=== PATIENT | male | born 1945 | race Caucasian/White ===

== ENCOUNTER 2017-05-12 06:31 | Day surgery (SDC) | payer OTHER ==
[2017-05-12] MEDS ORDERED: LIDOCAINE 1% 2 ML INJ ID PRN (06:44)
[2017-05-12] MEDS ORDERED: ceFAZolin 2 GM/DEXTROSE 100 ML IV ONE (06:44)
[2017-05-12] MEDS ORDERED: LR 1,000 ML IV ONE (06:44)
--- NOTE | 2017-05-12 07:15 | PDHPUP ---
History & Physical Update H&P update statement: This history and physical update is based on an assessment of the patient which was completed after admission or registration (within 24 hours), but prior to the surgery/procedure. H&P update: H&P reviewed & patient examined, no change in patient's condition since H&P completed
[2017-05-12 07:19] VITALS: PULSE 90
--- NOTE | 2017-05-12 08:20 | PDANEPAE ---
ANE History of Present Illness presents for open ventral hernia repair ANE Past Medical History - Cardiovascular History Hx Hypertension: No Hx Arrhythmias: No Hx Chest Pain: No Hx Coronary Artery / Peripheral Vascular Disease: No Hx CHF / Valvular Disease: No Hx Palpitations: No - Pulmonary History Hx COPD: No Hx Asthma/Reactive Airway Disease: No Hx Recent Upper Respiratory Infection: No Hx Oxygen in Use at Home: No Hx Sleep Apnea: No Sleep Apnea Screening Result - Last Documented: Negative - Neurologic History Hx Cerebrovascular Accident: No Hx Seizures: No Hx Dementia: No - Endocrine History Hx Diabetes: No Obesity: no - Renal History Hx Renal Disorders: No - Liver History Hx Hepatic Disorders: Yes Hepatic History Comment: CYSTS REMOVED FROM LIVER - Neurological & Psychiatric Hx Hx Neurological and Psychiatric Disorders: No - Cancer History Hx Cancer: No Cancer History Comment: SKIN CA NECK & BACK - GI History Hx Gastrointestinal Disorders: Yes Gastrointestinal History Comment: DIGESTIVE PROBLEMS - Other Health History Other Health History: DISCOID LUPUS OCCAS OUTBREAKS - Chronic Pain History Chronic Pain: Yes (LBP AND NECK) - Surgical History Prior Surgeries: NECK DISC SURGERY FUSION 2009. LOW BACK SURGERY FUSION 2009. HERNIORRHAPHY ING [facility] UMBILICAL. LIVER CYSTS REMOVED ANE Review of Systems Review of systems is: negative Review of Systems: - Exercise capacity METS (RN): 4 METS ANE Patient History - Allergies Allergies/Adverse Reactions: No Known Allergies Allergy (Unverified 03/15/10 11:39) - Home Medications Home medications: home medication list seen and reviewed Home Medications: HYDROcodone/APAP 10/325 05/12/17 [Last Taken 05/12/17] traMADol 05/12/17 [Last Taken 05/12/17 06:15] - NPO status NPO Since - Liquids (Date): 05/12/17 NPO Since - Liquids (Time): 06:15 NPO Since - Solids (Date): 05/11/17 NPO Since - Solids (Time): 19:00 - Anes Hx Anes Hx: no prior problems - Smoking Hx Smoking Status: Former smoker - Family Anes Hx Family Anes Hx: none Family Hx Anesthesia Complications: NEG ANE Labs/Vital Signs - Vital Signs Blood Pressure: 130/83 Heart Rate: 90 Respiratory Rate: 16 O2 Sat (%): 97 Height: 172.72 cm Weight: 77.111 kg ANE Physical Exam - Airway Neck exam: FROM Mallampati Score: Class 2 Mouth exam: normal dental/mouth exam - Pulmonary Pulmonary: no respiratory distress - Cardiovascular Cardiovascular: regular rate and rhythym - ASA Status ASA Status: II ANE Anesthesia Plan Anesthesia Plan: GA w LMA
[2017-05-12] MEDS ORDERED: BUPIVACAINE 0.5% 30 ML SDV ONE (08:21)
[2017-05-12] MEDS ORDERED: MIDAZOLAM 2 MG/2 ML VIAL IVP ONE (08:23)
[2017-05-12] MEDS ORDERED: DEXAMETHASONE 4 MG/ML VIAL ONE (08:26)
[2017-05-12] MEDS ORDERED: ONDANSETRON 4 MG/2 ML VIAL ONE (08:26)
[2017-05-12] MEDS ORDERED: PROPOFOL 200 MG/20 ML VIAL ONE (08:26)
[2017-05-12] MEDS ORDERED: fentaNYL 100 MCG/2 ML INJ ONE ×2 (08:26→09:17)
[2017-05-12] MEDS ORDERED: LIDOCAINE 2% 5 ML SDV ONE (08:26)
[2017-05-12] MEDS ORDERED: THROMBIN (BOVINE) 5,000 UNIT VIAL TP ONE (09:38)
[2017-05-12] MEDS ORDERED: ALBUTEROL 3 ML DEYVIAL IH PRN (09:46)
[2017-05-12] MEDS ORDERED: PROMETHAZINE HCL 25 MG/ML INJ IVP PRN (09:46)
[2017-05-12] MEDS ORDERED: HYDROmorphONE/DILAUDID 1 MG/ML INJ IVP PRN (09:46)
[2017-05-12] MEDS ORDERED: ACETAMINOPHEN 500 MG TAB PO PRN (09:46)
[2017-05-12] MEDS ORDERED: NALOXONE HCL 0.4 MG/ML INJ IVP PRN (09:46)
[2017-05-12] MEDS ORDERED: HYDROCODONE/APAP 5/325 TAB PO PRN (09:46)
[2017-05-12] MEDS ORDERED: METOCLOPRAMIDE 10 MG/2 ML VIAL IVP PRN (09:46)
[2017-05-12] MEDS ORDERED: fentaNYL 100 MCG/2 ML INJ IVP PRN (09:46)
[2017-05-12] MEDS ORDERED: ONDANSETRON 4 MG/2 ML VIAL IVP PRN (09:46)
--- NOTE | 2017-05-12 10:03 | POSTANESTH ---
Post Anesthetic Evaluation Cardiovascular Status: Normal, Stable Respiratory Status: Normal, Stable Level of Consciousness/Mental Status: Can Participate in Eval Pain Control: Adequate, Prn Tx Ordered Nausea/Vomiting Control: Adequate, Prn Tx Ordered Complications Possibly Related to Anesthesia: None Noted
--- NOTE | 2017-05-12 10:04 | POSTOPPROG ---
Post Op Note Date of Operation: 05/12/17 Surgeon: Lucas Hernandez Retail Area Manager: Eli Farris Anesthesiologist: Ayanna Anesthesia: GET(General Endotracheal) Pre-op Diagnosis: Ventral hernia Post-op Diagnosis: same Indication: enlarging ventral hernia Procedure: Open ventral hernia repair with mesh Findings: Ventral hernia Inf/Abcess present in the surg proc area at time of surgery?: No Depth: Deep Incisional (Fascial) EBL: Minimal Specimen(s): hernia sac
[2017-05-12] MEDS ORDERED: HYDROCODONE/APAP 5/325 TAB ONE (10:27)
[2017-05-12 11:09] VITALS: TEMP 97.9
[2017-05-12] MEDS ORDERED: HYDROmorphONE/DILAUDID 1 MG/ML INJ ONE (11:13)
[2017-05-12 12:38] VITALS: BP 131/79; RESP 24; O2SAT 97
--- NOTE | 2017-05-18 11:31 | GOP ---
[f rep st] OPERATIVE REPORT DATE OF OPERATION: 05/12/2017 SURGEON: Lucas Hernandez MD PIE CHEF: Eli Farris PA-C. ANESTHESIOLOGIST: Dr. Urena. PREOPERATIVE DIAGNOSIS: Ventral hernia. POSTOPERATIVE DIAGNOSIS: Ventral hernia. PROCEDURE PERFORMED: Open ventral hernia repair with mesh. FINDINGS: Patient was found to have a 3 cm hernia defect with additional attenuated fascia causing a diastasis effect. DESCRIPTION OF PROCEDURE: Patient taken to the operating room where he received satisfactory general endotracheal anesthesia by Dr. Urena. He was placed in supine position, prepped and draped in [facility] sterile fashion. A vertical incision was made through the previous old scar. Dissection carried down through subcutaneous tissue. Hernia sac was dissected free from surrounding subcutaneous tissu e, and the sac was dissected down to the fascial edges. The sac was then opened. Its contents were reduced. Excess sac was amputated. Hemostasis was assured. Fascial edges were freshened up. A sub fascial pocket was created. The peritoneum was closed with a running 3-0 Vicryl suture to close off the subfascial pocket. A Covidien polyester mesh patch was placed in a subfascial position and ancho red around the periphery of the wound with interrupted 0 Ethibond mattress sutures at least 2 cm back from the fascial edges. The fascial edges were then closed in a [id number] 2-layer closure wit h 0 Ethibond mattress sutures, and some of the attenuated fascia above the hernia defect was imbricat ed as well with interrupted 0 Ethibond hnygal-dc-[id number] sutures. Wound was infiltrated with 0.5% Chaitanya rogelio. Hemostasis was thoroughly obtained. Subcu was closed with a running 2-0 Vicryl suture and the skin with a 4-0 Monocryl subcuticular stitch. All layers again were infiltrated with 0.5% Marcaine. There were no complications. Blood loss was less than 15 cc. He was taken to recovery room in goo d condition. /[id number]/MODL
== END 2017-05-12 12:35 | disposition home or self-care (01) ==
LOC: FSGY 06:31
PROVIDERS: ATTEND Surgery
PROC: 0WUF0JZ Supplement Abdominal Wall with Synthetic Substitute, Open Approach (ICD-10-PCS; principal; 2017-05-12 08:30)
DX: K43.9 Ventral hernia without obstruction or gangrene (principal)
CPT/HCPCS: C1781; J0690; J1100; J1170; J2250; J2405; J2704; J3010

== ENCOUNTER 2018-02-06 11:47 | Observation (INO) | payer OTHER ==
[2018-02-06] MEDS ORDERED: ceFAZolin 2 GM/DEXTROSE 100 ML IV ONE (12:17)
[2018-02-06] MEDS ORDERED: LIDOCAINE 1% 2 ML INJ ID PRN (12:31)
[2018-02-06] MEDS ORDERED: LIDOCAINE 1% 2 ML INJ ONE (12:31)
[2018-02-06] MEDS ORDERED: LR 1,000 ML IV ONE (12:31)
[2018-02-06] MEDS ORDERED: BUPIVACAINE 0.25% 30 ML SDV ONE (13:00)
--- NOTE | 2018-02-06 14:19 | PDANEPAE ---
ANE History of Present Illness Laparoscopic repair of recurrent ventral hernia ANE Past Medical History - Cardiovascular History Hx Hypertension: No Hx Arrhythmias: No Hx Chest Pain: No Hx Coronary Artery / Peripheral Vascular Disease: No Hx CHF / Valvular Disease: No Hx Palpitations: No Cardiovascular History Comment: PVC's - Pulmonary History Hx COPD: No Hx Asthma/Reactive Airway Disease: No Hx Recent Upper Respiratory Infection: No Hx Oxygen in Use at Home: No Hx Sleep Apnea: No Sleep Apnea Screening Result - Last Documented: Positive - Neurologic History Hx Cerebrovascular Accident: No Hx Seizures: No Hx Dementia: No - Endocrine History Hx Diabetes: No Hypothyroid: No Hyperthyroid: No Obesity: mild - Renal History Hx Renal Disorders: No - Liver History Hx Hepatic Disorders: Yes Hepatic History Comment: CYSTS REMOVED FROM LIVER - Neurological & Psychiatric Hx Hx Neurological and Psychiatric Disorders: Yes Neurological / Psychiatric History Comment: discoid lupus, insomnia, occasional anxiety - Cancer History Hx Cancer: No Cancer History Comment: SKIN CA NECK & BACK - Congenital Disorder History Hx Congenital Disorders: No - GI History GERD: no Hx Gastrointestinal Disorders: Yes Gastrointestinal History Comment: chronic constipation - Other Health History Other Health History: DISCOID LUPUS OCCAS OUTBREAKS - Chronic Pain History Chronic Pain: Yes (LBP AND NECK, on chronic opioids) - Surgical History Prior Surgeries: NECK DISC SURGERY FUSION 2009. LOW BACK SURGERY FUSION 2009. HERNIORRHAPHY ING [facility]NGEL & UMBILICAL. LIVER CYSTS REMOVED. hernia repair 10/22 ANE Review of Systems Review of Systems: - Exercise capacity METS (RN): 4 METS ANE Patient History - Allergies Allergies/Adverse Reactions: No Known Allergies Allergy (Unverified 02/05/18 13:22) - Home Medications Home Medications: HYDROcodone/APAP 10/325 05/12/17 [Last Taken 02/05/18 22:30] traMADol 05/12/17 [Last Taken 02/04/18] Acetaminophen [Tylenol ES 500 mg (*)] 02/05/18 [Last Taken 02/05/18 23:59] Gabapentin 02/05/18 [Last Taken 02/06/18 11:45] Valium 2 MG (*) 02/05/18 [Last Taken 02/05/18 23:00] Percocet 5/325 (*) 02/06/18 [Last Taken 02/06/18 07:30] - NPO status NPO Since - Liquids (Date): 02/06/18 NPO Since - Liquids (Time): 09:00 NPO Since - Solids (Date): 02/05/18 NPO Since - Solids (Time): 23:30 - Smoking Hx Smoking Status: Former smoker - Family Anes Hx Family Hx Anesthesia Complications: NEG ANE Labs/Vital Signs - Vital Signs Blood Pressure: 157/85 Heart Rate: 90 Respiratory Rate: 18 O2 Sat (%): 95 Height: 172.72 cm Weight: 79.379 kg ANE Physical Exam - Airway Neck exam: decreased ROM Mallampati Score: Class 2 Mouth exam: normal dental/mouth exam - Pulmonary Pulmonary: clear to auscultation - Cardiovascular Cardiovascular: regular rate and rhythym - ASA Status ASA Status: III ANE Anesthesia Plan Anesthesia Plan: general endotracheal anesthesia
[2018-02-06] MEDS ORDERED: MIDAZOLAM 2 MG/2 ML VIAL IVP ONE (14:23)
[2018-02-06] MEDS ORDERED: PROPOFOL 200 MG/20 ML VIAL ONE (14:30)
[2018-02-06] MEDS ORDERED: DEXAMETHASONE 4 MG/ML VIAL ONE (14:30)
[2018-02-06] MEDS ORDERED: fentaNYL 250 MCG/5 ML INJ ONE (14:30)
[2018-02-06] MEDS ORDERED: ROCURONIUM 50 MG/5 ML VIAL ONE (14:30)
[2018-02-06] MEDS ORDERED: ESMOLOL HCL 100 MG/10 ML VIAL IV ONE (15:33)
[2018-02-06] MEDS ORDERED: ONDANSETRON 4 MG/2 ML VIAL ONE (15:39)
[2018-02-06] MEDS ORDERED: NEOSTIGMINE METHYLSULFATE 3 MG/3 ML SYR ONE (15:41)
[2018-02-06] MEDS ORDERED: GLYCOPYRROLATE 0.2 MG/1 ML VIAL ONE (15:41)
[2018-02-06] MEDS ORDERED: KETOROLAC 30 MG/1 ML SDV ONE (15:50)
[2018-02-06] MEDS ORDERED: ONDANSETRON 4 MG/2 ML VIAL IVP PRN (15:53)
[2018-02-06] MEDS ORDERED: NALOXONE HCL 0.4 MG/ML INJ IVP PRN (15:53)
[2018-02-06] MEDS ORDERED: oxyCODONE IR 5 MG TAB PO PRN (15:53)
[2018-02-06] MEDS ORDERED: LABETALOL HCL 5 MG/ML 20 ML MDV IVP PRN (15:53)
--- NOTE | 2018-02-06 15:58 | POSTOPPROG ---
Post Op Note Date of Operation: 02/06/18 Surgeon: Lucas Hernandez Tellers Supervisor: Keyonna Mcgowan Anesthesiologist: Av Sifuentes Anesthesia: GET(General Endotracheal) Pre-op Diagnosis: recurrent ventral hernia Post-op Diagnosis: same Procedure: laparoscopic recurrent ventral hernia repair c mesh Findings: ~2 cm hernia adjacent to mesh Inf/Abcess present in the surg proc area at time of surgery?: No EBL: Minimal Complications: none Specimen(s): none
[2018-02-06] MEDS ORDERED: fentaNYL 100 MCG/2 ML INJ ONE ×2 (16:15→18:26)
[2018-02-06] MEDS: fentaNYL 100 MCG/2 ML INJ IVP PRN ×3 (16:16→18:29)
[2018-02-06] MEDS ORDERED: oxyCODONE IR 5 MG TAB ONE (17:07)
--- NOTE | 2018-02-06 17:09 | POSTANESTH ---
Post Anesthetic Evaluation Cardiovascular Status: Similar to Pre-Op Cond Respiratory Status: Normal, Stable Level of Consciousness/Mental Status: Can Participate in Eval Pain Control: Adequate, Prn Tx Ordered Nausea/Vomiting Control: Adequate, Prn Tx Ordered Complications Possibly Related to Anesthesia: None Noted
[2018-02-06] MEDS ORDERED: HYDROmorphONE/DILAUDID 1 MG/ML INJ ONE (19:13)
[2018-02-06] MEDS: HYDROmorphONE/DILAUDID 1 MG/ML INJ IVP PRN ×2 (20:21→22:37)
[2018-02-06] MEDS: HYDROCODONE/APAP 10/325 TAB PO PRN (20:22)
[2018-02-07] MEDS: HYDROmorphONE/DILAUDID 1 MG/ML INJ IVP PRN ×3 (00:42→10:14)
[2018-02-07] MEDS: HYDROCODONE/APAP 10/325 TAB PO PRN ×2 (03:09→13:11)
[2018-02-07] MEDS: KETOROLAC 15 MG/1 ML SDV IVP SCH ×2 (10:21→16:50)
--- NOTE | 2018-02-07 11:26 | SOAPPROG ---
SOAP Progress Note Assessment/Plan: Assessment: VITAL SIGNS STABLE/AFEBRILE/COMPLAINING OF INCISIONAL PAIN AND USING LOTS OF NARCOTIC ABDOMEN SOFT SLIGHTLY DISTENDED, POSITIVE BOWEL SOUNDS, WOUND OKAY EATING WELL BUT NO BOWEL MOVEMENT YET, SOME FLATUS IMPRESSION: PRIMARY PROBLEM IS ADJUSTING IS NARCOTICS HE IS A CHRONIC NARCOTIC USER Plan: OBSERVED IN THE HOSPITAL ANOTHER DAY 02/07/18 11:24 Objective: Vital Signs Temp Pulse Resp BP Pulse Ox 36.6 C 81 16 131/71 H 94 02/07/18 07:41 02/07/18 07:41 02/07/18 07:41 02/07/18 07:41 02/07/18 07:41 02/06/18 02/07/18 02/08/18 05:59 05:59 05:59 Intake Total 1850 Output Total 505 Balance 1345 ICD10 Worksheet Patient Problems: Problems Problem Status Onset Recurrent ventral incisional hernia Acute - ICD10 Problem Qualifiers (1) Recurrent ventral incisional hernia
[2018-02-07] MEDS ORDERED: POLYETHYLENE GLYCOL 3350 17 GM PKT PO SCH (11:30)
[2018-02-07 16:29] VITALS: BP 112/75
--- NOTE | 2018-02-07 17:54 | ASMTLACE ---
LACE Length of stay for Answers: Less than 1 day current admission Acuity / Level of Answers: No Care: Did the patient have an inpatient admission? # of Emergency department Answers: 0 visits in the last 6 months Date Signed: 02/07/2018 05:54 PM Electronically Signed By:Lisa Coronado RN
--- NOTE | 2018-02-07 17:57 | ASMTCMCOM ---
CM Note CM Note Notes: Pt admitted for scheduled open ventral hernia repair. History includes prior laproscopic ventral hernia repair. Pt is and lives with his . Per MD notes and Harry, CTL, pt to discharge home independently with family support and no identified needs. No IM/ALVARENGA signed, admission < 24 hrs. Pt to follow up as directed. CM available for any further issues or concerns. Discharge Plan: Home independently with family support Date Signed: 02/07/2018 05:56 PM Electronically Signed By:Lisa Coronado RN
--- NOTE | 2018-02-09 02:43 | GOP ---
[f rep st] OPERATIVE REPORT DATE OF OPERATION: 02/06/2018 SURGEON: Lucas Hernandez MD FISHING VESSEL DECKHAND: Keyonna Mcgowan PA-C ANESTHESIOLOGIST: Av Sifuentes MD PREOPERATIVE DIAGNOSIS: Recurrent ventral hernia. POSTOPERATIVE DIAGNOSIS: Recurrent ventral hernia. PROCEDURE PERFORMED: Laparoscopic ventral hernia repair. FINDINGS: The patient was found to have a 1.5 cm ventral defect lateral to the previous mesh and her niating through a suture site on the right side of the abdomen. He had a fair amount of omental adhe sions to the mesh as well. DESCRIPTION OF PROCEDURE: The patient was taken to the operating room where he received satisfactory general endotracheal anesthesia. He was placed in the supine position, prepped and draped in the [facility] sterile fashion. A left upper quadrant short incision was made. A Veress needle was inserted. Pneumoperitoneum was established. Trocar was introduced. Good visualization was obtained. Two othe r trocars were placed in the left side of the abdomen mid level and the left lower quadrant. The adh esions were taken down with the Harmonic Scalpel until the entire area could be exposed. The hernia defect was clearly defined and its contents were reduced. A Covidien dual-sided mesh was then introd uced using a 15 x 12 mesh. This was placed over the 1.5 cm defect and anchored in place with the Pro tac securing it in 3 concentric layers of tacks circumferentially around the mesh. This covered the mesh with good 2 inches plus on all sides of the defect. Hemostasis was assured. Trocars were remov ed under direct vision. Trocar sites were closed with 0 Vicryl for the fascia, 4-0 Monocryl subcutic ular stitch for the skin. All layers were infiltrated with 0.5% Marcaine. There were no complicatio ns. He was taken to the recovery room in good condition. /[id number]/MODL
== END 2018-02-07 17:52 | disposition home or self-care (01) ==
LOC: FSGY 11:47 → F3E 17:58 → F1N 19:58
PROVIDERS: ADMIT Surgery; ATTEND Surgery
PROC: 0WUF4JZ Supplement Abdominal Wall with Synthetic Substitute, Percutaneous Endoscopic Approach (ICD-10-PCS; principal; 2018-02-06 13:15)
DX: K43.9 Ventral hernia without obstruction or gangrene (principal)
CPT/HCPCS: 49652; C1781; J0690; J1100; J1170; J1885; J2250; J2270; J2405; J2704; J2710; J3010

== ENCOUNTER 2018-10-02 10:16 | Day surgery (SDC) | payer OTHER, MEDICARE ==
--- NOTE | 2018-09-30 03:52 | GHP ---
[f rep st] HISTORY AND PHYSICAL CURRENT COMPLAINT: Left shoulder pain. HISTORY OF PRESENT ILLNESS: The patient is a 72-year-old male with a several- month history of right shoulder pain worsening with use and with time to the point that he is having difficulty using it. ALLERGIES: He lists no prior drug allergy. CURRENT MEDICATIONS: Include betamethasone, diazepam, gabapentin, hydromorphone , hydrocodone, tramadol, and ventolin. PAST MEDICAL HISTORY: Prior medical problems include arthritis, gout, osteopenia. PAST SURGICAL HISTORY: Prior surgeries include right knee x3, lipoma x2, left knee, multiple foot surgeries, multiple spine surgeries, right shoulder arthroscopy. SOCIAL HISTORY: He is a former smoker and currently is nondrinker. PHYSICAL EXAM: EYES: His pupils are equal, round, reactive to light. CHEST: Clear to auscultation. HEART: Regular rate and rhythm. ABDOMEN: Soft and nontender. MUSCULOSKELETAL: Shoulder has tenderness at the biceps groove as well as the glenohumeral joint. He has pain to his Speed's test with pain to use of external rotation in the supraspinatus. IMAGING STUDIES: MRI reveals partial-thickness supraspinatus tearing, severe long head biceps longitudinal tearing and subluxation, moderate arthritis of the glenohumeral joint with labral tearing, and glenoid cyst. ASSESSMENT AND PLAN: The patient is status post left shoulder impingement syndrome with osteoarthritis, biceps tendinopathy, and labral tearing. The plan is to take him to the operating room to undergo a left shoulder scope with SAD, open biceps tenodesis, and debridement of biceps stump and labrum. /[id number]/MODL MTDD
[2018-10-02] MEDS ORDERED: LR 1,000 ML IV SCH (10:28)
[2018-10-02] MEDS ORDERED: ceFAZolin 2 GM/DEXTROSE 100 ML IV ONE (10:28)
[2018-10-02] MEDS ORDERED: LIDOCAINE 1% 2 ML INJ ID PRN (10:28)
[2018-10-02] MEDS ORDERED: LR 1,000 ML IV ONE (10:28)
[2018-10-02] MEDS ORDERED: THROMBIN (BOVINE) 5,000 UNIT VIAL TP ONE (10:45)
[2018-10-02] MEDS ORDERED: CALCIUM CHLORIDE 1 GM/10 ML INJ ONE (10:45)
[2018-10-02] MEDS ORDERED: BUPIVACAINE/EPI 0.5% 30 ML SDV ONE (10:45)
[2018-10-02] MEDS ORDERED: EPINEPHrine 1 MG/ML INJ ONE (10:46)
[2018-10-02] MEDS ORDERED: EPINEPHrine 30 MG/30 ML MDV (0.1 MG/0.1 ML) ONE (12:42)
--- NOTE | 2018-10-02 12:45 | PDANEPAE ---
ANE History of Present Illness L shoulder arthroscopy ANE Past Medical History - Cardiovascular History Hx Hypertension: No Hx Arrhythmias: No Hx Chest Pain: No Hx Coronary Artery / Peripheral Vascular Disease: No Hx CHF / Valvular Disease: No Hx Palpitations: No Cardiovascular History Comment: PVC's - Pulmonary History Hx COPD: No Hx Asthma/Reactive Airway Disease: No Hx Recent Upper Respiratory Infection: No Hx Oxygen in Use at Home: No Hx Sleep Apnea: No Sleep Apnea Screening Result - Last Documented: Negative - Neurologic History Hx Cerebrovascular Accident: No Hx Seizures: No Hx Dementia: No - Endocrine History Hx Diabetes: No Endocrine History Comment: PRE DIAB - DIET CONTROLLED - Renal History Hx Renal Disorders: No - Liver History Hx Hepatic Disorders: Yes Hepatic History Comment: CYSTS REMOVED FROM LIVER - Neurological & Psychiatric Hx Hx Neurological and Psychiatric Disorders: Yes Neurological / Psychiatric History Comment: insomnia, occasional anxiety - Cancer History Hx Cancer: No Cancer History Comment: SKIN CA NECK & BACK - Congenital Disorder History Hx Congenital Disorders: No - GI History Hx Gastrointestinal Disorders: Yes Gastrointestinal History Comment: chronic constipation - Other Health History Other Health History: DISCOID LUPUS OCCAS OUTBREAKS - Chronic Pain History Chronic Pain: Yes (NECK & BACK CHRONIC PAIN MGT) - Surgical History Prior Surgeries: NECK DISC SURGERY FUSION 2009. LOW BACK SURGERY FUSION 2009. HERNIORRHAPHY ING ÁNGEL & UMBILICAL. LIVER CYSTS REMOVED. hernia repair 10/22 ANE Review of Systems Review of Systems: - Exercise capacity METS (RN): 4 METS ANE Patient History - Allergies Allergies/Adverse Reactions: No Known Allergies Allergy (Unverified 02/05/18 13:22) - Home Medications Home medications: home medication list seen and reviewed Home Medications: Acetaminophen [Tylenol ES 500 mg (*)] 1,000 mg PO DAILY PRN 02/06/18 [Last Taken 2 Days Ago ~09/30/18] Aspirin [Aspirin 325 mg (*)] 2.5 tab PO DAILY PRN 02/06/18 [Last Taken 1 Week Ago ~09/25/18] Hydrocodone/Acetaminophen [Hydrocodone-Acetamin 10-300 mg] 0.5 tab PO DAILY PRN 02/06/18 [Last Taken 1 Day Ago ~10/01/18] traMADol [Ultram 50 mg (*)] 50 mg PO Q2D PRN 02/06/18 [Last Taken 2 Weeks Ago ~ 09/18/18] Diazepam 09/26/18 [Last Taken 1 Day Ago ~10/01/18] Herbals/Supplements -Info Only 09/26/18 [Last Taken Unknown] Morphine Sulfate 09/26/18 [Last Taken 10/02/18 07:00] - NPO status NPO Status: no food or drink >8 hours NPO Since - Liquids (Date): 10/02/18 NPO Since - Liquids (Time): 07:00 NPO Since - Solids (Date): 10/01/18 NPO Since - Solids (Time): 23:30 - Anes Hx Anes Hx: no prior problems - Smoking Hx Smoking Status: Former smoker - Alcohol Use Alcohol Use: None - Family Anes Hx Family Anes Hx: none Family Hx Anesthesia Complications: NEG ANE Labs/Vital Signs - Vital Signs Blood Pressure: 166/97 Heart Rate: 80 Respiratory Rate: 18 O2 Sat (%): 94 Height: 172.72 cm Weight: 77.111 kg ANE Physical Exam - Airway Neck exam: decreased ROM Mallampati Score: Class 2 Mouth exam: normal dental/mouth exam - Pulmonary Pulmonary: no respiratory distress, clear to auscultation - Cardiovascular Cardiovascular: regular rate and rhythym, no murmur, rub, or gallop - ASA Status ASA Status: II ANE Anesthesia Plan Anesthesia Plan: GA w LMA Regional Anesthesia: single shot NB, interscalene BP NB
[2018-10-02] MEDS ORDERED: MIDAZOLAM 2 MG/2 ML VIAL IVP ONE (12:46)
[2018-10-02] MEDS ORDERED: MIDAZOLAM 2 MG/2 ML VIAL ONE (12:48)
[2018-10-02] MEDS ORDERED: PROPOFOL 200 MG/20 ML VIAL ONE (13:01)
[2018-10-02] MEDS ORDERED: fentaNYL 100 MCG/2 ML INJ ONE ×2 (13:01→15:10)
[2018-10-02] MEDS ORDERED: PROMETHAZINE HCL 25 MG/ML INJ IVP PRN (13:50)
[2018-10-02] MEDS ORDERED: HYDROCODONE/APAP 5/325 TAB PO PRN (13:50)
[2018-10-02] MEDS ORDERED: fentaNYL 100 MCG/2 ML INJ IVP PRN (13:50)
[2018-10-02] MEDS ORDERED: ACETAMINOPHEN 500 MG TAB PO PRN (13:50)
[2018-10-02] MEDS ORDERED: ONDANSETRON 4 MG/2 ML VIAL IVP PRN (13:50)
[2018-10-02] MEDS ORDERED: DIAZEPAM 5 MG/ML 1 ML SYR IVP PRN (13:50)
[2018-10-02] MEDS ORDERED: NALOXONE HCL 0.4 MG/ML INJ IVP PRN (13:50)
[2018-10-02] MEDS ORDERED: oxyCODONE IR 5 MG TAB PO PRN (13:50)
[2018-10-02] MEDS ORDERED: DEXAMETHASONE 4 MG/ML VIAL ONE (13:51)
[2018-10-02] MEDS ORDERED: ONDANSETRON 4 MG/2 ML VIAL ONE (13:51)
[2018-10-02] MEDS ORDERED: OXYCODONE/APAP 5/325 TAB PO PRN (14:22)
[2018-10-02] MEDS ORDERED: ACETAMINOPHEN 325 MG TAB PO PRN (14:22)
--- NOTE | 2018-10-02 14:22 | POSTOPPROG ---
Post Op Note Date of Operation: 10/02/18 Surgeon: Nia Narayan Genetic Technologist: coltrain Anesthesia: GET(General Endotracheal), Other (Specify) Pre-op Diagnosis: l bicep tendinopathy with impingement and labral tear Procedure: open l bicep tenodesis with l shoulder scope with sad/dce/debribement Inf/Abcess present in the surg proc area at time of surgery?: No Depth: Deep Incisional (Fascial) EBL: 50-100
--- NOTE | 2018-10-02 14:32 | POSTANESTH ---
Post Anesthetic Evaluation Cardiovascular Status: Normal, Stable, Similar to Pre-Op Cond Respiratory Status: Normal, Stable, Similar to Pre-op Cond. Level of Consciousness/Mental Status: Mildly Sleepy, Arousable Pain Control: Adequate, Prn Tx Ordered Nausea/Vomiting Control: Adequate, Prn Tx Ordered Complications Possibly Related to Anesthesia: None Noted
[2018-10-02] MEDS ORDERED: OXYCODONE/APAP 5/325 TAB ONE (15:25)
[2018-10-02 17:34] VITALS: BP 97/74
--- NOTE | 2018-10-02 18:55 | GOP ---
[f rep st] OPERATIVE REPORT DATE OF OPERATION: 10/02/2018 SURGEON: Nia Narayan MD MARKETING PLANNING MANAGER: JESSE BlairA, LSA, whose presence was medically necessary. ANESTHESIA: By LMA plus scalene nerve block per surgeon's request. PREOPERATIVE DIAGNOSIS: Left shoulder biceps tendinopathy with shoulder impingement and labral teari ng. POSTOPERATIVE DIAGNOSIS: PROCEDURE PERFORMED: Open left biceps tenodesis with left shoulder scope with subacromial decompress ion; distal clavicle excision; debridement of biceps stump, labrum, and rotator cuff. FINDINGS: INDICATIONS: This is a 72-year-old male with a several-month history of left shoulder pain worsening with use and with time despite multiple conservative measures. MRI reveals severe biceps tendinopat hy. He wishes to have surgery in order to resolve the problem. DESCRIPTION OF PROCEDURE: The patient was brought to the operating room after the left side had been identified as the correct side by the patient, nurse, and physician. Once in the operating room, he was given a scalene block on the left side and then placed under general anesthesia using LMA. Once asleep, he was placed in a beach chair position with the left upper extremity sterilely prepped and draped in the usual fashion using GSI solution. Once prepped and draped, an incision was made off th e anterior portion of the shoulder directly over the biceps groove with sharp dissection and carried down through the skin and subcutaneous layers with bleeding controlled using electrocautery. The del topectoral interval was found with blunt dissection carried through the deltopectoral interval. Find ing the biceps sheath, below the biceps sheath was incised. The biceps tendon was isolated. It was found to be frayed and essentially split in half. A #2 FiberWire was woven into the biceps tendon. It was cut short. The tendon was measured to be 7 mm in diameter. Therefore, an 8 mm hole was drill ed in the bicipital groove only through 1 cortex. A 9 mm [place] anchor was driven into the bone pul ling the biceps stump with it and reattaching it onto the humerus. The anchor was tugged upon and no rito to have no movement. Suture was cut short. The wound was thoroughly irrigated with an antibioti c solution. It was closed in layers to include 0 Vicryl suture for the deltopectoral interval, 2-0 V icryl suture for the subcutaneous layers, and 3-0 V-Loc suture in a running subcuticular stitch for t skin. The camera was then reintroduced into the shoulder through a posterior portal just off the posterolateral corner of the acromion. Examination revealed tearing of the labrum as well as the fra carson and tearing of the biceps stump. There was noted to be fraying of the rotator cuff, also. in g an in-to-out technique, an anterior portal was made superolateral to the coracoid process with a 6 x 75 mm threaded cannula placed through the anterior portal. The biceps tendon was able to be debrid ed using a 3.5 mm smooth shaver brought through the anterior portal until achieving a smooth surface on the labrum. The remainder of the labrum was debrided at its anterior, posterior and superior port ions, and the frayed portions of the rotator cuff were able to be debrided. Once completed, all inst ruments were removed from the shoulder joint and using the same portal sites, we reintroduced in the subacromial space. A third incision was made 2 cm lateral to the acromial process in line with the p osterior cortex of the clavicle. With the camera switched to the lateral portal and alternating with using an arthroscopic Bovie tip and a shaver, was used to remove the soft tissue from the undersurfa ce of the acromion. He was noted to have a short, sharp inferior spur and this was debrided using a combination of shaver and bur until achieving a flat ceiling. Attention was turned to the distal cla vicle, which was also noted to have a short, sharp inferior spur and this was also debrided using a c ombination of shaver and bur. Once achieving a flat surface on each of the areas, all instruments we re removed from the subacromial space with 30 cc of Marcaine infused in the subacromial space. The 3 portal sites were closed using a 3-0 nylon suture in a [id number] type stitch and Plasma-Gel wa s placed into the subacromial space. The wounds were then dressed with Steri-Strips on the bicipital wound and then dressed with Xeroform, 4 x 4, and Tegaderm. The patient was completely undraped in [facility] operating room and had a sling placed on the left upper extremity. He was woken up, extubated, tr ansferred onto a stretcher, and sent to the recovery room in good condition. /[id number]/MODL
== END 2018-10-02 18:16 | disposition home or self-care (01) ==
LOC: FSGY 10:16
PROVIDERS: ATTEND Orthopaedic Surgery
DX: M75.42 Impingement syndrome of left shoulder (principal); M75.22 Bicipital tendinitis, left shoulder; M75.82 Other shoulder lesions, left shoulder; M75.102 Unspecified rotator cuff tear or rupture of left shoulder, not specified as traumatic; M10.9 Gout, unspecified; M85.89 Other specified disorders of bone density and structure, multiple sites; R73.03 Prediabetes; Z87.891 Personal history of nicotine dependence; Z98.1 Arthrodesis status
CPT/HCPCS: C1713; J0171; J0690; J1100; J2250; J2405; J2704; J3010